=== PATIENT | female | born 1980 | race Caucasian/White ===

== ENCOUNTER → 2016-07-10 | Outpatient (CLI) | payer OTHER ==
--- NOTE | 2016-07-10 18:56 | Diagnostic Imaging Report ---
EXAMINATION: Left breast digital diagnostic mammogram with CAD. The current study was also evaluated with a Computer Aided Detection (CAD) system. INDICATION: Nodule in the upper-outer aspect of the left breast on baseline exam of 12/06/15. COMPARISON: 12/06/15. FINDINGS: Again seen is a lobulated nodule, measuring about 8 mm in size, at the upper outer aspect of the left breast without significant change. This is favored to be related to intramammary lymph node. Heterogeneously dense parenchyma is seen in the left breast, otherwise, without significant change. IMPRESSION: 8 mm nodule in the upper-outer aspect of the left breast is without change and is likely an intramammary lymph node. Another followup in 12 months is suggested to ensure further stability. ACR BI-RADS Category 3: Probably benign findings. Result letter will be mailed to the patient. Note: At least 10% of breast cancer is not imaged by mammography. Dictated by: Dictated on workstation # [id number]
== END ==
LOC: RAD 07:58
PROVIDERS: ATTEND Obstetrics & Gynecology
DX: R92.8 Other abnormal and inconclusive findings on diagnostic imaging of breast (principal)

== ENCOUNTER 2016-11-15 01:57 | Emergency (ER) | payer OTHER ==
[~2016-11-15] VITALS: Ht 165.1 cm; Wt 113.4 kg
[2016-11-15] MEDS ORDERED: RIZA10TA37 (02:21)
[2016-11-15 02:46] LABS: BILIRUBIN,URINE NEGATIVE (NEGATIVE); KETONES,URINE NEGATIVE (NEGATIVE); LEUKOCYTE ESTERASE ,URINE NEGATIVE (NEGATIVE); NITRITE,URINE NEGATIVE (NEGATIVE); PH,URINE 7 (5-9); PROTEIN,URINE NEGATIVE (NEGATIVE); UROBILINOGEN,URINE NORMAL (NORMAL)
[2016-11-15] MEDS: FAMOTIDINE 20MG/2ML IV (PEPCID) IVP ONE (02:53)
[2016-11-15] MEDS: NS IV 1000 ML 1,000 ML IV ONE (02:53)
[2016-11-15] MEDS: KETOROLAC 30 MG/ML VIAL IVP ONE (02:54)
[2016-11-15] MEDS: ONDANSETRON 4 MG/2 ML (SDV) Z0FRAN IVP ONE (02:54)
[2016-11-15 02:56] LABS: BASOPHILS # (AUTO) 0.1 10^3/uL (0.0-0.1); BASOPHILS % (AUTO) 1 % (0-10); EOSINOPHILS # (AUTO) 0.1 10^3/uL (0.0-0.3); EOSINOPHILS % (AUTO) 1 % (0-10); LYMPHOCYTES # (AUTO) 3.9 X 10^3 (1.0-4.0); LYMPHOCYTES % (AUTO) 33 % (12-44); MEAN CORPUSCULAR HEMOGLOBIN 29 PG (25-34); MEAN CORPUSCULAR HGB CONC 34 G/DL (32-36); MEAN CORPUSCULAR VOLUME 84 FL (80-99); MEAN PLATELET VOLUME 10.1 FL (7.4-10.4); MONOCYTES # (AUTO) 0.7 X 10^3 (0.0-1.0); MONOCYTES % (AUTO) 6 % (0-12); NEUTROPHILS # (AUTO) 7.3 X 10^3 (1.8-7.8); NEUTROPHILS % (AUTO) 60 % (42-75); PLATELET COUNT 301 10^3/uL (130-400); RED BLOOD COUNT 4.59 10^6/uL (4.35-5.85); RED CELL DISTRIBUTION WIDTH 13.1 % (10.0-14.5); WHITE BLOOD COUNT 12.1 10^3/uL (4.3-11.0)
[2016-11-15 03:14] LABS: ANION GAP 12 MMOL/L (5-14); BLOOD UREA NITROGEN 10 MG/DL (7-18); BUN/CREATININE RATIO 13; CARBON DIOXIDE 24 MMOL/L (21-32); CHLORIDE 103 MMOL/L (98-107); CREATININE SERUM 0.76 MG/DL (0.60-1.30); POTASSIUM 3.2 MMOL/L (3.6-5.0); SODIUM 139 MMOL/L (135-145)
[2016-11-15 03:15] LABS: CALCIUM 9.1 MG/DL (8.5-10.1); GFR ESTIMATED > 60; GLUCOSE 112 MG/DL (70-105); MAGNESIUM 1.9 MG/DL (1.8-2.4)
[2016-11-15] MEDS: KCL 10 MEQ TAB (MICRO K) PO ONE (03:45)
[2016-11-15] MEDS: methylPREDNISolone 125 MG (Solu-MEDROL) VIAL IVP ONE (03:45)
[2016-11-15] MEDS ORDERED: PRD20T PO (03:48)
--- NOTE | 2016-11-15 03:48 | ED Headache ---
General Chief Complaint: Head/Cervical Problems Stated Complaint: HEADACHE Nursing Triage Note: PRESENTS TO ED WITH 8 DAY HX OF HEADACHE. REPORTS USING 12-20 EXCEDRIN DAILY. HX OF MIGRAINES AND USED A MAXALT 10 MG 2 HRS AGO. Nursing Sepsis Screen: No Definite Risk Source: patient Exam Limitations: no limitations History of Present Illness Time seen by provider: 02:20 Initial Comments This 36-year-old woman presents to the emergency room with complaints of 8 days of headache. She has been taking 12-20 Excedrin daily without much improvement. She has been extremely nauseated without vomiting with this headache which is unusual for her headaches. She also normally does not experience headaches for more than 3 days at a time. She took Maxalt at home. This did not seem effective either. Vision has been blurred which is typical for her headaches. She presently rates her pain as 6/10. Allergies and Home Medications Allergies Coded Allergies: No Known Drug Allergies (Unverified , 08/10/15) Home Medications Prednisone 20 Mg Tab, 20 MG PO DAILY, #3 Prescribed by: DOMENICO ARMAS on 11/15/16 0348 Rizatriptan Benzoate 10 Mg Tablet, (Reported) Constitutional: no symptoms reported Eyes: See HPI Ears, Nose, Mouth, Throat: no symptoms reported Respiratory: no symptoms reported Cardiovascular: no symptoms reported Gastrointestinal: see HPI Genitourinary: no symptoms reported : No Musculoskeletal: no symptoms reported Skin: no symptoms reported Psychiatric/Neurological: See HPI Past Xzxgxbm-Tohasn-Geekgw Hx Patient Social History Alcohol Use: Denies Use Recreational Drug Use: No Smoking Status: Never a Smoker Recent Foreign Travel: No Contact w/Someone Who Travel: No Recent Infectious Disease Expo: No Recent Hopitalizations: No Seasonal Allergies Seasonal Allergies: No Surgeries History of Surgeries: Yes Surgeries: Section, Gallbladder Respiratory History of Respiratory Disorde: No Cardiovascular History of Cardiac Disorders: Yes (HAD A UTI A YEAR AGO AND WAS TAKING AN NSAID WHICH CAUSED INFLAMMATION ) Neurological History of Neurological Disord: No Reproductive System : No Last Menstrual Period: Nov 01, 2016 Hx Reproductive Disorders: No Sexually Transmitted Disease: No HIV/AIDS: No Female Reproductive Disorders: Denies Genitourinary History of Genitourinary Disor: Yes Genitourinary Disorders: Bladder Infection Gastrointestinal History of Gastrointestinal Di: No Musculoskeletal History of Musculoskeletal Dis: No Endocrine History of Endocrine Disorders: No HEENT History of HEENT Disorders: No Hearing Impairment: Denies Cancer History of Cancer: No Psychosocial History of Psychiatric Problem: No Integumentary History of Skin or Integumenta: No Blood Transfusions History of Blood Disorders: No Physical Exam Vital Signs Vital Sign - Last 12Hours 11/15/16 02:05 Temp 97.9 Pulse 82 Resp 20 B/P (MAP) 168/94 Pulse Ox 96 O2 Delivery Room Air Capillary Refill : Less Than 3 Seconds General Appearance: WD/WN, no apparent distress HEENT: PERRL/EOMI, normal ENT inspection, TMs normal, pharynx normal Neck: normal inspection Cardiovascular: regular rate, rhythm, no edema, no murmur Respiratory: lungs clear, normal breath sounds, no respiratory distress, no accessory muscle use Gastrointestinal: normal bowel sounds, non tender, soft Extremities: normal inspection, no pedal edema Psychiatric: alert, oriented x 3 Crainal Nerves: normal hearing, normal speech, PERRL Motor/Sensory: no motor deficit, no sensory deficit Skin: normal color, warm/dry Progress/Results/Core Measures Results/Orders Lab Results Laboratory Tests Test 11/15/16 02:10 11/15/16 02:45 Range/Units Urine Color YELLOW Urine Clarity SLIGHTLY CLOUDY Urine pH 7 5-9 Urine Specific [place] 1.015 L 1.016-1.022 Urine Protein NEGATIVE NEGATIVE Urine Glucose (UA) NEGATIVE NEGATIVE Urine Ketones NEGATIVE NEGATIVE Urine Nitrite NEGATIVE NEGATIVE Urine Bilirubin NEGATIVE NEGATIVE Urine Urobilinogen NORMAL NORMAL MG/DL Urine Leukocyte Esterase NEGATIVE NEGATIVE Urine RBC (Auto) NEGATIVE NEGATIVE Urine RBC NONE /HPF Urine WBC NONE /HPF Urine Squamous Epithelial Cells 2-5 /HPF Urine Crystals NONE /LPF Urine Bacteria FEW H /HPF Urine Casts NONE /LPF Urine Mucus NEGATIVE /LPF Urine Culture Indicated NO White Blood Count 12.1 H 4.3-11.0 10^3/uL Red Blood Count 4.59 4.35-5.85 10^6/uL Hemoglobin 13.2 11.5-16.0 G/DL Hematocrit 39 35-52 % Mean Corpuscular Volume 84 80-99 FL Mean Corpuscular Hemoglobin 29 25-34 PG Mean Corpuscular Hemoglobin Concent 34 32-36 G/DL Red Cell Distribution Width 13.1 10.0-14.5 % Platelet Count 301 130-400 10^3/uL Mean Platelet Volume 10.1 7.4-10.4 FL Neutrophils (%) (Auto) 60 42-75 % Lymphocytes (%) (Auto) 33 12-44 % Monocytes (%) (Auto) 6 0-12 % Eosinophils (%) (Auto) 1 0-10 % Basophils (%) (Auto) 1 0-10 % Neutrophils # (Auto) 7.3 1.8-7.8 X 10^3 Lymphocytes # (Auto) 3.9 1.0-4.0 X 10^3 Monocytes # (Auto) 0.7 0.0-1.0 X 10^3 Eosinophils # (Auto) 0.1 0.0-0.3 10^3/uL Basophils # (Auto) 0.1 0.0-0.1 10^3/uL Sodium Level 139 135-145 MMOL/L Potassium Level 3.2 L 3.6-5.0 MMOL/L Chloride Level 103 98-107 MMOL/L Carbon Dioxide Level 24 21-32 MMOL/L Anion Gap 12 5-14 MMOL/L Blood Urea Nitrogen 10 7-18 MG/DL Creatinine 0.76 0.60-1.30 MG/DL Estimat Glomerular Filtration Rate > 60 BUN/Creatinine Ratio 13 Glucose Level 112 H 70-105 MG/DL Calcium Level 9.1 8.5-10.1 MG/DL Magnesium Level 1.9 1.8-2.4 MG/DL Serum Test, Qualitative NEGATIVE NEGATIVE My Orders Orders - DOMENICO DRAPER MD Basic Metabolic Panel (11/15/16 02:32) Cbc With Automated Diff (11/15/16 02:32) Magnesium (11/15/16 02:32) Ua Culture If Indicated (11/15/16 02:32) Saline Lock/Iv-Start (11/15/16 02:32) Ns Iv 1000 Ml (Sodium Chloride 0.9%) (11/15/16 02:32) Ketorolac Injection (Toradol Injection) (11/15/16 02:45) Famotidine Injection (Pepcid Injection) (11/15/16 02:45) Ondansetron Injection (Zofran Injectio (11/15/16 02:45) Hcg,Qualitative Serum (11/15/16 02:40) Potassium Chloride (Tablet) (Klor Con Ta (11/15/16 03:30) Methylprednisolone Sod Succ (Solu-Medrol (11/15/16 03:30) Rx-Ondansetron Po (Rx-Zofran Po) (11/15/16 03:43) Rx-Promethazine Hcl (Rx-Phenergan Supp) (11/15/16 03:43) Medications Given in ED Vital Signs/I&O Vital Sign - Last 12Hours 11/15/16 11/15/16 11/15/16 02:05 02:54 04:01 Temp 97.9 97.9 97.9 Pulse 82 81 Resp 20 20 B/P (MAP) 168/94 Pulse Ox 96 98 O2 Delivery Room Air Blood Pressure Mean: 118 Progress Note : Progress Note Patient was initially treated with Pepcid, Zofran, IV fluids, and Toradol. She had modest improvements with these measures. No sedating medications were desired as she needed to drive home. She was given take-home packet of Zofran and promethazine. Solu-Medrol was also given to help prevent rebound of this prolonged headache. Oral potassium replacement was also given as patient had slight hypokalemia. Departure Impression Impression: Primary Impression: Headache Qualified Codes: R51 - Headache Additional Impressions: Nausea Hypokalemia Disposition: HOME, SELF-CARE Condition: Improved Departure-Patient Inst. Decision time for Depature: 03:40 Referrals: NO,LOCAL PHYSICIAN (PCP/Family) Primary Care Physician Patient Instructions: Migraine Headache (DC) Add. Discharge Instructions: Follow-up with your primary care provider as soon as possible for further workup and treatment of your headaches. Consider further testing such as screening for vitamin D deficiency, imaging of the head, referral to neurologist , etc. if headaches persist. Use Zofran (ondansetron) dissolved under the tongue every 4 hours as needed for nausea and vomiting. Add promethazine suppositories if needed for further control of nausea. Return to care if symptoms worsen. For headaches, try naproxen 500 mg twice daily and Tylenol. Take naproxen with food or milk to avoid stomach upset. Avoid excessive use of Excedrin. All discharge instructions reviewed with patient and/or family. Voiced understanding. Scripts Prednisone (Prednisone) 20 Mg Tab 20 MG PO DAILY, #3 TAB Prov: DOMENICO DRAPER MD 11/15/16 DOMENICO DRAPER MD Nov 15, 2016 3:48 am
[2016-11-15 04:01] VITALS: BP 164/103
[2016-11-15] MEDS: RX-ONDANSETRON 4 MG ODT (ZOFRAN) PPK #4 SL STA (04:01)
[2016-11-15] MEDS: RX-PHENERGAN 25 MG SUPP PPK#3 PR STA (04:01)
== END 2016-11-15 04:01 | disposition home or self-care (01) ==
LOC: EDUNIT# 01:57 → ER 01:58
DX: R51 Headache (principal); R11.0 Nausea; E87.6 Hypokalemia; Z87.59 Personal history of other complications of pregnancy, childbirth and the puerperium; Z87.440 Personal history of urinary (tract) infections; Z87.448 Personal history of other diseases of urinary system
CPT/HCPCS: 36415; 80048; 81000; 83735; 84703; 85025

== ENCOUNTER → 2017-08-03 | Outpatient (CLI) | payer OTHER ==
[~2017-08-03] MED LIST: PRD20T PO; RIZA10TA37
--- NOTE | 2017-08-03 13:41 | Diagnostic Imaging Report ---
INDICATION: Followup right breast nodule. COMPARISON: Left mammogram of 07/10/2016 and bilateral mammograms of 12/06/2015. TECHNIQUE: Bilateral 2D and 3D diagnostic mammography was performed with CAD. FINDINGS: Both breasts remain heterogeneously dense, limiting the sensitivity of mammography. The circumscribed nodule in the outer left breast appears stable and most consistent with a benign etiology. No new mass or malignant appearing microcalcifications are seen. The axillae are unremarkable. IMPRESSION: Stable bilateral mammograms. The patient may return to routine annual screening mammography. ACR BI-RADS Category 2: Benign findings. Result letter will be mailed to the patient. Note: At least 10% of breast cancer is not imaged by mammography. Dictated by: Dictated on workstation # [id number]
== END ==
LOC: RAD 12:31
PROVIDERS: ATTEND Obstetrics & Gynecology
DX: N63.10 Unspecified lump in the right breast, unspecified quadrant (principal); N63.20 Unspecified lump in the left breast, unspecified quadrant
CPT/HCPCS: 77066

== ENCOUNTER → 2018-11-03 | Outpatient (CLI) | payer OTHER ==
--- NOTE | 2018-11-03 19:34 | Diagnostic Imaging Report ---
INDICATION: Routine screening. COMPARISON: Comparison is made with prior mammograms from 08/03/2017 and 12/06/2015. EXAMINATION: 2D and 3D bilateral screening mammography was performed with CAD. The current study was also evaluated with a Computer Aided Detection (CAD) system. FINDINGS: Both breasts remain heterogeneously dense, limiting the sensitivity of mammography. The parenchymal pattern appears stable. Intraparenchymal lymph node of outer left breast is stable. No new mass or malignant appearing microcalcifications are seen. Axillae are unremarkable. IMPRESSION: No mammographic features suspicious for malignancy are identified. ACR BI-RADS Category 2: Benign findings. Result letter will be mailed to the patient. Note: At least 10% of breast cancer is not imaged by mammography. Dictated by: Dictated on workstation # [id number]
== END ==
LOC: RAD 15:01
PROVIDERS: ATTEND Obstetrics & Gynecology
DX: Z12.31 Encounter for screening mammogram for malignant neoplasm of breast (principal)
CPT/HCPCS: 77067

== ENCOUNTER → 2020-02-27 | Outpatient (CLI) | payer OTHER ==
--- NOTE | 2020-02-27 12:46 | Diagnostic Imaging Report ---
INDICATION: Routine screening. COMPARISON: 11/03/2018 and 08/03/2017. TECHNIQUE: 2D and 3D bilateral screening mammography was performed with CAD. FINDINGS: Both breasts are heterogeneously dense, limiting the sensitivity of mammography. An intraparenchymal lymph node in the outer left breast is noted. No spiculated mass or malignant appearing microcalcifications are seen. The axillae are unremarkable. IMPRESSION: No mammographic features suspicious for malignancy are identified. ACR BI-RADS Category 2: Benign findings. Result letter will be mailed to the patient. Note: At least 10% of breast cancer is not imaged by mammography. Dictated by: Dictated on workstation # [id number]
== END ==
LOC: RAD 11:06
PROVIDERS: ATTEND Obstetrics & Gynecology
DX: Z12.31 Encounter for screening mammogram for malignant neoplasm of breast (principal)
CPT/HCPCS: 77063; 77067